=== PATIENT | female | born 1965 | race African-American/Black ===

== ENCOUNTER 2025-10-06 08:07 | Emergency (ER) | payer MEDICARE, OTHER ==
[~2025-10-06] VITALS: Ht 162.6 cm; Wt 95.0 kg
[2025-10-06 08:14] VITALS: TEMP 98.1
[2025-10-06] MEDS ORDERED: [UNRECOGNIZED DRUG - OTHER] SQ (08:26)
[2025-10-06] MEDS ORDERED: XALA2.5OS OU (08:26)
[2025-10-06] MEDS ORDERED: AMLO-258 PO (08:26)
[2025-10-06] MEDS ORDERED: DORZ10DR6 OU (08:26)
[2025-10-06] MEDS ORDERED: MELO-107 PO (08:26)
[2025-10-06] MEDS ORDERED: METF-1211 PO (08:26)
[2025-10-06] MEDS ORDERED: ATOR10TA PO (08:26)
[2025-10-06] MEDS ORDERED: IPRATROPIUM BROMIDE 0.5 MG/2.5 ML NEB SOLUTION NEB ONE (08:40)
[2025-10-06] MEDS: IPRATROPIUM BROMIDE 0.5 MG/2.5 ML NEB SOLUTION NEB ONE (08:50)
[2025-10-06] MEDS: ALBUTEROL SULFATE 2.5 MG/0.5 ML NEB SOLUTION NEB ONE (08:50)
[2025-10-06 08:51] VITALS: PULSE 92; RESP 20; O2SAT 97
[2025-10-06 08:52] VITALS: PULSE 92; RESP 20; O2SAT 97
[2025-10-06 08:52] LABS: CALCIUM, TOTAL 8.7 mg/dL (8.8-10.5); CREATININE 1.03 mg/dL (0.60-1.30); GLOMERULAR FILTR. RATE CALC > 60 mL/min (>60); GLUCOSE,RANDOM 118 mg/dL (70-110); SODIUM SERUM 138 mmol/L (136-145); UREA NITROGEN, BLOOD 15 mg/dL (7-18)
[2025-10-06 08:53] LABS: PLATELET COUNT (AUTO) 277 K/uL (150-450); RED BLOOD CELL COUNT(AUTO) 5.11 MIL/uL (4.00-5.20); RED CELL DISTRIBUTION WIDTH 16.1 % (11.5-14.5); WHITE BLOOD COUNT (AUTO) 11.7 K/uL (4.5-11.0)
[2025-10-06 09:01] LABS: TROPONIN I-HIGH SENSITIVITY 5 ng/L (<51)
[2025-10-06] MEDS ORDERED: BECL10.62 IH (09:05)
[2025-10-06] MEDS ORDERED: IPRA3AMP24 NEB (09:05)
[2025-10-06] MEDS ORDERED: PRED-554 PO (09:05)
[2025-10-06] MEDS ORDERED: ALBU18HF12 IH (09:05)
[2025-10-06] MEDS ORDERED: DIPH50CA37 PO (09:05)
[2025-10-06 10:00] VITALS: BP 135/64; PULSE 85; RESP 20; O2SAT 97
== END 2025-10-06 10:12 | disposition home or self-care (01) ==
LOC: EMS 08:07
DX: J45.901 Unspecified asthma with (acute) exacerbation (principal); R05.9 Cough, unspecified; E11.9 Type 2 diabetes mellitus without complications; E78.00 Pure hypercholesterolemia, unspecified; I10 Essential (primary) hypertension; Z79.1 Long term (current) use of non-steroidal anti-inflammatories (NSAID); Z79.899 Other long term (current) drug therapy
CPT/HCPCS: 99284; 80048; 82962; 83880; 84484; 85025; 36415; 94640; 93005; J7512